=== PATIENT | female | born 1960 | race Caucasian/White ===

== ENCOUNTER → 2024-01-02 14:11 | Outpatient (REF) | payer OTHER, SELFPAY | LOC: WDC 14:11 | PROVIDERS: ATTENDING PHYSICIAN Obstetrics & Gynecology Gynecology; FAMILY PHYSICIAN Family Medicine | DX: R92.8 Other abnormal and inconclusive findings on diagnostic imaging of breast (principal); Z12.31 Encounter for screening mammogram for malignant neoplasm of breast | CPT/HCPCS: 76642; 77063; 77067 ==

== ENCOUNTER → 2024-07-30 06:29 | Day surgery (SDC) | payer MEDICARE, OTHER, SELFPAY ==
[2024-07-30 09:17] LABS: Glucose - Point of Care 119 mg/dl (70-99)
== END ==
LOC: GI 06:29
PROVIDERS: ATTENDING PHYSICIAN Internal Medicine Gastroenterology
DX: Z12.11 Encounter for screening for malignant neoplasm of colon (principal); K57.30 Diverticulosis of large intestine without perforation or abscess without bleeding; Z86.0101 Personal history of adenomatous and serrated colon polyps; K22.89 Other specified disease of esophagus; K44.9 Diaphragmatic hernia without obstruction or gangrene; K31.7 Polyp of stomach and duodenum; D12.3 Benign neoplasm of transverse colon; D12.5 Benign neoplasm of sigmoid colon; K63.5 Polyp of colon
CPT/HCPCS: 45385; 45380; 43251; 43239; 88305; 82962

== ENCOUNTER → 2024-12-17 14:39 | Outpatient (REF) | payer MEDICARE, OTHER, SELFPAY | LOC: DHSLP 14:39 | PROVIDERS: ATTENDING PHYSICIAN Student in an Organized Health Care Education/Training Program | DX: G47.33 Obstructive sleep apnea (adult) (pediatric) (principal) | CPT/HCPCS: 95800 ==

== ENCOUNTER → 2025-01-11 12:28 | Outpatient (REF) | payer MEDICARE, OTHER, SELFPAY | LOC: WDC 12:28 | PROVIDERS: ATTENDING PHYSICIAN Obstetrics & Gynecology Gynecology; FAMILY PHYSICIAN Student in an Organized Health Care Education/Training Program | DX: M85.89 Other specified disorders of bone density and structure, multiple sites (principal); Z12.31 Encounter for screening mammogram for malignant neoplasm of breast; R92.8 Other abnormal and inconclusive findings on diagnostic imaging of breast | CPT/HCPCS: 76642; 77063; 77067; 77080 ==

== ENCOUNTER 2025-03-31 13:15 | Emergency (ER) | payer MEDICARE, OTHER, SELFPAY ==
[2025-03-31 13:23] VITALS: BP 148/106
[2025-03-31 16:15] VITALS: BP 146/95; BMI 38.4
--- NOTE | 2025-03-31 16:38 | EDRN ---
Jordana BURROUGHS in room w/ pt at this time.
--- NOTE | 2025-03-31 16:43 | ED.GENMED ---
History of Present Illness
General
Chief Complaint: Head Injury
Source: patient
Exam Limitations: none
Time Seen by Provider: 03/31/25 16:04
History of Present Illness
History of Present Illness:
64yoF with a history of type 2 diabetes presenting for evaluation after a head injury yesterday morning. Patient was 'head butted' by her dog in the forehead yesterday. There was no loss of consciousness. Patient had some dizziness and felt off
balance yesterday. She developed a headache today. Headache is currently rated as a 6/10 in severity. She denies any nausea, vomiting, visual changes. She was sent to the ED by her PCP for a CT scan. Patient does not take any blood thinners.
Phy Exam
General Physical Exam
General Presentation: well appearing and no apparent distress
General Skin: warm and dry
General Habitus: normal
General Mental: alert
ENT Exam
ENT Exam: normocephalic and other (No external signs of head trauma. No cervical spine tenderness.)
Neurological Exam
Neurological Exam: alert
Ramy Coma Scale
Eye Opening: Spontaneous
Verbal Response: Oriented
Motor Response: Obeys Commands
GCS Total Score: 15
Skin Exam
Skin Exam: normal color and warm/dry
Psychiatric Exam
Psychiatric Exam: normal mood/affect
Course
Orders/Labs/Results
Orders:
Orders
03/31/25 13:[address] [CT Head W/o Iv Contrast] Urgent
Comment:
Reason For Exam: dizziness after head injury
03/31/25 16:40
Acetaminophen [Tylenol] 1,000 mg PO NOW STA
Vital Signs
Initial and Last Documented VS:
Initial Vital Signs
Temp Pulse Resp BP Pulse Ox
98.9 F 88 18 148/106 97
03/31/25 13:23 03/31/25 13:23 03/31/25 13:23 03/31/25 13:23 03/31/25 13:23
Last Documented Vital Signs
Temp Pulse Resp BP Pulse Ox
98.9 F 74 16 146/95 96
03/31/25 13:23 03/31/25 16:15 03/31/25 16:15 03/31/25 16:15 03/31/25 16:44
MDM/Problems Addressed
Differential Diagnosis Includes:
64yoF here with headache/dizziness after a head injury yesterday. No blood thinners. No external signs of head trauma on exam. Patient is awake, alert, with a GCS of 15. Differential diagnosis includes but is not limited to: closed head injury,
concussion, fracture, intracranial hemorrhage
CT head obtained which is negative for acute findings. Patient stable for discharge. Supportive care discussed and advised f/u with PCP.
*Pulse Oximetry
SaO2: 96
Oxygen Mode of Delivery: Room air
Patient hypoxic: no (97%)
*Critical Care Note
Total Time (30-74mins, 75-104mins- exclusive of procedures): Not Applicable
ED Attending Note
-
Portions of this chart may have been created with voice recognition software.� Occasional wrong word or��sound alike� substitutions may have occurred due to the inherent limitations of voice recognition software.
Discharge Plan
Departure
Patient Disposition: Home (Routine Discharge)
Date of Disposition: 03/31/25
Time of Disposition: 16:57
Patient with high blood pressure during this ER visit?: Yes
Discharge Problem:
Closed head injury
Instructions: Head Injury in Adults (DC)
Prescriptions:
No Action
metformin 500 MG tablet
500 mg PO DAILY
famotidine 40 MG tablet
40 mg PO HS
pantoprazole 40 MG tablet,delayed release (DR/EC)
40 mg PO DAILY
sertraline 50 MG tablet
50 mg PO DAILY
calcium phosphate-vitamin D3 1 EACH tablet,chewable
1 ea PO DAILY
Referrals:
Torie Rollins MD [Family Provider, Family Practice]
Activity Restrictions/Additional Instructions:
Drink plenty of fluids and hydrate. Take Tylenol as needed for headaches. Rest for the next 48 hours.
Please follow-up with your family doctor. Return to the ER with any new or worsening symptoms.
Interventions
Interventions:
*Risk Screen - Suicide Last Done: 03/31/25 13:23
*General Assessment Last Done: 03/31/25 16:15
*Neglect/Abuse Screening Last Done: 03/31/25 16:15
*ED- Fall Risk Assessment Last Done: 03/31/25 16:15
*ED COVID-19 Vaccine History Last Done: 03/31/25 16:15
*Nursing Disposition Last Done: 03/31/25 17:21
ED- Neurological Assessment Last Done: 03/31/25 16:15
ED-Skin Assessment Last Done: 03/31/25 16:15
Discharge Date and Time
Discharge Date/Time: 03/31/25 17:22
Print Language: OCCITAN
[2025-03-31] MEDS: TYLENOL 1000 MG PO (16:58)
== END 2025-03-31 17:22 | disposition home or self-care (01) ==
LOC: EMR 13:15
PROVIDERS: EMERGENCY PHYSICIAN Emergency Medicine; FAMILY PHYSICIAN Student in an Organized Health Care Education/Training Program
DX: S09.90XA Unspecified injury of head, initial encounter (principal); W54.1XXA Struck by dog, initial encounter; E11.9 Type 2 diabetes mellitus without complications
CPT/HCPCS: 99284; 70450

== ENCOUNTER 2025-09-10 06:26 | Day surgery (SDC) | payer MEDICARE, OTHER, SELFPAY ==
[2025-09-10 07:55] LABS: Glucose - Point of Care 88 mg/dl (70-99)
== END 2025-09-10 10:24 | disposition home or self-care (01) ==
LOC: GI 06:26
PROVIDERS: ATTENDING PHYSICIAN Internal Medicine Gastroenterology
DX: K22.89 Other specified disease of esophagus (principal); K44.9 Diaphragmatic hernia without obstruction or gangrene; K31.7 Polyp of stomach and duodenum
CPT/HCPCS: 43255; 43251; 82962; 88305